=== PATIENT | male | born 1930 | race African-American/Black ===

== ENCOUNTER 2017-12-20 10:58 | Emergency (ER) | payer OTHER ==
[~2017-12-20] VITALS: Ht 193 cm; Wt 86.0 kg
[2017-12-20 12:23] VITALS: BP 153/80
== END 2017-12-20 12:34 | disposition home or self-care (01) ==
LOC: ER 11:56
DX: R33.9 Retention of urine, unspecified (principal); I10 Essential (primary) hypertension; E78.00 Pure hypercholesterolemia, unspecified; Z98.890 Other specified postprocedural states
CPT/HCPCS: 51702; 99284; A4315

== ENCOUNTER 2018-01-07 09:54 | Emergency (ER) | payer OTHER ==
[~2018-01-07] VITALS: Ht 193 cm; Wt 85.0 kg
[2018-01-07 13:02] LABS: CLARITY URINE CLEAR (CLEAR); COLOR URINE YELLOW (YELLOW); KETONES URINE NEGATIVE (NEGATIVE); LEUKOCYTE ESTERASE URINE 1+ (NEGATIVE); NITRITE URINE NEGATIVE (NEGATIVE); OCCULT BLOOD URINE 1+ (NEGATIVE); PROTEIN URINE NEGATIVE (NEGATIVE); SPECIFIC GRAVITY URINE 1.013 (1.005-1.030); UROBILINOGEN URINE 0.2 E.U./dL (0.2-1.0)
[2018-01-07 13:38] VITALS: BP 124/78
== END 2018-01-07 15:11 | disposition home or self-care (01) ==
LOC: ER 11:48
DX: N40.1 Benign prostatic hyperplasia with lower urinary tract symptoms (principal); N39.0 Urinary tract infection, site not specified; I10 Essential (primary) hypertension; E78.00 Pure hypercholesterolemia, unspecified
CPT/HCPCS: 51702; 81003; 87077; 87086; 87186; 99284; A4315

== ENCOUNTER 2018-01-14 22:56 | Emergency (ER) | payer OTHER ==
[~2018-01-14] VITALS: Ht 193 cm; Wt 82.0 kg
[2018-01-15 02:16] LABS: CLARITY URINE CLEAR (CLEAR); COLOR URINE YELLOW (YELLOW); KETONES URINE NEGATIVE (NEGATIVE); LEUKOCYTE ESTERASE URINE 1+ (NEGATIVE); NITRITE URINE NEGATIVE (NEGATIVE); OCCULT BLOOD URINE 2+ (NEGATIVE); PH URINE 5.5 (4.5-8.0); PROTEIN URINE NEGATIVE (NEGATIVE); SPECIFIC GRAVITY URINE 1.016 (1.005-1.030); UROBILINOGEN URINE 0.2 E.U./dL (0.2-1.0)
[2018-01-15 03:15] VITALS: BP 122/74
== END 2018-01-15 03:19 | disposition home or self-care (01) ==
LOC: ER 01-15 02:54
DX: T83.031A Leakage of indwelling urethral catheter, initial encounter (principal); X58.XXXA Exposure to other specified factors, initial encounter; I10 Essential (primary) hypertension; E78.00 Pure hypercholesterolemia, unspecified; Z46.6 Encounter for fitting and adjustment of urinary device
CPT/HCPCS: 51702; 81003; 99283; 99284; A4315